=== PATIENT | male | born 2000 | race Caucasian/White ===

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

== ENCOUNTER 2020-10-03 21:30 | Emergency (ER) | payer OTHER ==
[2020-10-03 21:46] VITALS: BP 112/70; PULSE 104
--- NOTE | 2020-10-03 22:09 | EDM.PDOC ---
ED HPI GENERAL MEDICAL PROBLEM - General Chief Complaint: General Stated Complaint: PAIN IN GROIN AREA Time Seen by Provider: 10/03/20 21:41 Source of Information: Reports: Patient History Limitations: Reports: No Limitations - History of Present Illness INITIAL COMMENTS - FREE TEXT/NARRATIVE: Mr. Lozano a pleasant 20-year-old man who now presents the ED with left testicular pain that developed this past 09/29/2020, while he was having sexual intercourse with his girlfriend. He does not recall any specific injury to the teste. Since then, he has noticed that his left teste swollen and tender. Pain to the testes made worse with virtually any movement, and radiates up into his left pelvic area. Pain is made worse if he takes a hot shower, but is relieved if he urinates. He reports increased urinary frequency, but denies dysuria. He has not had a fever. No prior similar symptoms. The patient has not taken any [id number] medications, nor attempted to ice his scrotum since the onset of his symptoms. Here in the ED, the patient is found to be mildly tachycardic at 104 bpm, otherwise, he is hemodynamically stable, afebrile, saturating 99% on room air. Prior to Monday, the patient denies having a recent fever, chills, sore throat, ear pain, nasal or sinus congestion, cough, dyspnea, chest pain, palpitations, nausea, vomiting, constipation, diarrhea, abdominal pain, urinary symptoms, recent weight gain or weight loss, recent bloody bowel movements or black bowel movements, recent joint aches, headaches, or rashes. I reviewed the PMHx/PSHx/SocHx, which was reviewed with the patient by the RN. The patient's PCP is ARAM Amaro. - Related Data Allergies Allergy/AdvReac Type Severity Reaction Status Date / Time No Known Allergies Allergy Verified 03/26/18 14:23 Home Meds: Home Meds . [No Known Home Meds] 10/03/20 [History] Past Medical History - Past Health History Medical/Surgical History: Denies Medical/Surgical History Musculoskeletal History: Reports: Other (See Below) Other Musculoskeletal History: wrist fracture x 2 Endocrine/Metabolic History: Reports: Obesity/BMI 30+ Immunologic History: Reports: None Oncologic (Cancer) History: Reports: None - Past Surgical History Head Surgeries/Procedures: Reports: None Musculoskeletal Surgical History: Reports: Other (See Below) Other Musculoskeletal Surgeries/Procedures:: left wrist ganglion cyst removal Oncologic Surgical History: Reports: None Social & Family History - Family History Family Medical History: No Pertinent Family History - Tobacco Use Tobacco Use Status *Q: Never Tobacco User - Caffeine Use Caffeine Use: Reports: Coffee, Energy Drinks, Soda, Tea - Recreational Drug Use Recreational Drug Type: Reports: Marijuana/Hashish ED ROS GENERAL - Review of Systems Review Of Systems: Comprehensive ROS is negative, except as noted in HPI. ED EXAM, GENERAL - Physical Exam Exam: See Below Exam Limited By: No Limitations General Appearance: Alert, WD/WN, No Apparent Distress Eye Exam: Bilateral Eye: EOMI, Normal Inspection Ears: Normal External Exam, Hearing Grossly Normal Nose: Normal Inspection Throat/Mouth: Normal Inspection, Normal Lips, Normal Voice, No Airway Compromise Head: Atraumatic, Normocephalic Neck: Normal Inspection, Full Range of Motion Respiratory/Chest: No Respiratory Distress, Lungs Clear, Normal Breath Sounds, No Accessory Muscle Use Cardiovascular: Normal Peripheral Pulses, Regular Rate, Rhythm, No Edema, No Gallop, No JVD, No Murmur, No Rub Peripheral Pulses: 3+: Radial (L), Radial (R) GI/Abdominal: Normal Bowel Sounds, Soft, Non-Tender, No Organomegaly, No Distention, No Abnormal Bruit, No Mass (Male) Exam: No Hernia, Circumcised, Cremasteric Reflex, Scrotum Tenderness (R), Testicular Mass (enlarged, very firm, tender left epididymis), Testicular Tenderness (L). No: Testicular Tenderness (R) Back Exam: Normal Inspection, Full Range of Motion, NT Extremities: Normal Inspection, Normal Range of Motion, No Pedal Edema, Normal Capillary Refill Neurological: Alert, Oriented, Normal Cognition, No Motor/Sensory Deficits Psychiatric: Normal Affect Skin Exam: Warm, Dry, Intact, Normal Color, No Rash Course - Vital Signs Last Recorded V/S: Last Vital Signs Temp 37.4 C 10/03/20 21:45 Pulse 104 H 10/03/20 21:45 Resp 20 10/03/20 21:45 BP 112/70 10/03/20 21:45 Pulse Ox 99 10/03/20 21:45 - Orders/Labs/Meds Orders: Active Orders 24 hr Category Date Time Status Scrotum and Contents [US] Stat Exams 10/03/20 22:03 Taken CULTURE URINE [RM] Stat Lab 10/03/20 22:15 Received Labs: Laboratory Tests 10/03/20 10/03/20 10/03/20 Range/Units 22:15 22:21 22:30 WBC 11.35 H (4.23-9.07) K/mm3 RBC 4.52 L (4.63-6.08) M/mm3 Hgb 13.2 L (13.7-17.5) gm/dl Hct 40.6 (40.1-51.0) % MCV 89.8 D (79.0-92.2) fl MCH 29.2 (25.7-32.2) pg MCHC 32.5 (32.2-35.5) g/dl RDW Std Deviation 41.5 (35.1-43.9) fL Plt Count 235 (163-337) K/mm3 MPV 9.1 L (9.4-12.3) fl Neutrophils % (Manual) 62 H (40-60) % Band Neutrophils % 0 (0-10) % Lymphocytes % (Manual) 31 (20-40) % Atypical Lymphs % 0 % Monocytes % (Manual) 5 (2-10) % Eosinophils % (Manual) 1 (0.8-7.0) % Basophils % (Manual) 1 (0.2-1.2) Platelet Estimate Adequate RBC Morph Comment Normal Sodium (136-145) mEq/L Potassium (3.5-5.1) mEq/L Chloride (98-107) mEq/L Carbon Dioxide (21-32) mEq/L Anion Gap (5-15) BUN (7-18) mg/dL Creatinine (0.7-1.3) mg/dL Est Cr Clr Drug Dosing mL/min Estimated GFR (MDRD) (>60) mL/min BUN/Creatinine Ratio (14-18) Glucose (74-106) mg/dL Calcium (8.5-10.1) mg/dL Total Bilirubin (0.2-1.0) mg/dL AST (15-37) U/L ALT (16-63) U/L Alkaline Phosphatase (46-116) U/L C-Reactive Protein (<1.0) mg/dL Total Protein (6.4-8.2) g/dl Albumin (3.4-5.0) g/dl Globulin gm/dL Albumin/Globulin Ratio (1-2) Urine Color Yellow (Yellow) Urine Appearance Slt cloudy H (Clear) Urine pH 7.0 (5.0-8.0) Ur Specific [place] > or = 1.030 (1.005-1.030) Urine Protein 1+ H (Negative) Urine Glucose (UA) Negative (Negative) Urine Ketones Negative (Negative) Urine Occult Blood Negative (Negative) Urine Nitrite Negative (Negative) Urine Bilirubin Negative (Negative) Urine Urobilinogen 2.0 H (0.2-1.0) Ur Leukocyte Esterase Negative (Negative) Urine RBC 0-5 (0-5) /hpf Urine WBC 10-20 H (0-5) /hpf Ur Squamous Epith Cells 0-5 (0-5) /hpf Amorphous Sediment Moderate H (NOT SEEN) /hpf Urine Bacteria Few (FEW) /hpf Urine Mucus Few (FEW) /hpf C trachomatis DNA (PCR) Detected H N gonorrhoeae DNA (PCR) Not detected 10/03/20 Range/Units 22:30 WBC (4.23-9.07) K/mm3 RBC (4.63-6.08) M/mm3 Hgb (13.7-17.5) gm/dl Hct (40.1-51.0) % MCV (79.0-92.2) fl MCH (25.7-32.2) pg MCHC (32.2-35.5) g/dl RDW Std Deviation (35.1-43.9) fL Plt Count (163-337) K/mm3 MPV (9.4-12.3) fl Neutrophils % (Manual) (40-60) % Band Neutrophils % (0-10) % Lymphocytes % (Manual) (20-40) % Atypical Lymphs % % Monocytes % (Manual) (2-10) % Eosinophils % (Manual) (0.8-7.0) % Basophils % (Manual) (0.2-1.2) Platelet Estimate RBC Morph Comment Sodium 142 (136-145) mEq/L Potassium 4.2 (3.5-5.1) mEq/L Chloride 104 (98-107) mEq/L Carbon Dioxide 30 (21-32) mEq/L Anion Gap 12.2 (5-15) BUN 15 (7-18) mg/dL Creatinine 1.3 (0.7-1.3) mg/dL Est Cr Clr Drug Dosing 102.44 mL/min Estimated GFR (MDRD) > 60 (>60) mL/min BUN/Creatinine Ratio 11.5 L (14-18) Glucose 102 (74-106) mg/dL Calcium 8.7 (8.5-10.1) mg/dL Total Bilirubin 0.5 (0.2-1.0) mg/dL AST 18 (15-37) U/L ALT 22 (16-63) U/L Alkaline Phosphatase 54 (46-116) U/L C-Reactive Protein 10.9 H* (<1.0) mg/dL Total Protein 7.7 (6.4-8.2) g/dl Albumin 3.6 (3.4-5.0) g/dl Globulin 4.1 gm/dL Albumin/Globulin Ratio 0.9 L (1-2) Urine Color (Yellow) Urine Appearance (Clear) Urine pH (5.0-8.0) Ur Specific [place] (1.005-1.030) Urine Protein (Negative) Urine Glucose (UA) (Negative) Urine Ketones (Negative) Urine Occult Blood (Negative) Urine Nitrite (Negative) Urine Bilirubin (Negative) Urine Urobilinogen (0.2-1.0) Ur Leukocyte Esterase (Negative) Urine RBC (0-5) /hpf Urine WBC (0-5) /hpf Ur Squamous Epith Cells (0-5) /hpf Amorphous Sediment (NOT SEEN) /hpf Urine Bacteria (FEW) /hpf Urine Mucus (FEW) /hpf C trachomatis DNA (PCR) N gonorrhoeae DNA (PCR) - Re-Assessments/Exams Free Text/Narrative Re-Assessment/Exam: 10/03/20 22:04 As above, the patient developed left testicular pain radiating up into his left pelvis this past 09/29/2020, while having sexual intercourse. He has since had pain, particularly with any movement. Pain is also made following a hot shower. He reports increased urinary frequency, but no dysuria, indeed, he has some relief of pain when he urinates. No recent fever. On examination, the patient has an enlarged, very firm, and tender epididymis extending up the spermatic cord. No clinical evidence of an inguinal hernia. I suspect that the patient is suffering from epididymitis. I have ordered several blood tests, a GC by PCR urine test, along with a urinalysis, and an ultrasound of the scrotum. 10/03/20 22:57 The patient's urinalysis is remarkable for occult blood with 0-5 RBCs, negative leukocyte esterase with 10-20 WBCs, negative nitrates with few bacteria, and 0-5 squamous epithelial cells. Based on the above, I have ordered a urine culture. 10/04/20 00:07 Ultrasound of the scrotum is read by [facility] as: 1. No evidence of acute testicular torsion bilaterally. 2. Acute left epididymitis. 3. Remainder of findings as above. The patient's CBC is remarkable for mild leukocytosis of 11.35, but with 0% bandemia. His Hgb is slightly depressed at 13.2, with a Hct within normal limits at 14.6, and the remainder of his CBC being unremarkable. His CMP is unremarkable. His CRP is elevated at 10.9. His GC by urine PCR is positive for chlamydia, and negative for gonorrhea. 10/04/20 00:17 Test results discussed with the patient. It appears that the patient is suffering from epididymitis due to Chlamydia trachomatis. Current guidelines recommend treatment with doxycycline 100 mg po BID x 10 days, as opposed to azithromycin 1 g x 1. Additionally, while the patient's gonorrhea PCR returned negative, current guidelines recommend treatment with Rocephin 500 mg IM x 1 anyway. The patient is agreeable. I emphasized that his girlfriend will need to be treated for chlamydia as well, and that neither of them can have sex with each other until both of them have finished her treatment, otherwise one will simply give chlamydia back to the other. The patient expressed understanding of that. 10/04/20 00:22 Since it is now Monday, the only pharmacy that will be open will be the [facility], between noon and 4 PM. The patient is concerned that his insurance will not cover prescriptions from there, therefore he is elected to get the doxycycline via [facility]. I have therefore canceled the order for doxycycline, since he will be able to take his own supply here in a few minutes. Departure - Departure Time of Disposition: 00:18 Disposition: Home, Self-Care 01 Condition: Good Clinical Impression: Epididymitis - Discharge Information *PRESCRIPTION DRUG MONITORING PROGRAM REVIEWED*: Not Applicable *COPY OF PRESCRIPTION DRUG MONITORING REPORT IN PATIENT STEVEN: Not Applicable Referrals: PCP,None [Primary Care Provider] - Forms: ED Department Discharge Additional Instructions: You were seen in the ER for a painful and swollen left testicle since Monday. Work-up in the ER included several blood tests, a urinalysis, a gonorrhea and chlamydia urine test, and an ultrasound of your testes. The urine chlamydia test returned positive, and the ultrasound found epididymitis. Your urine was not completely normal, but not entirely consistent with a UTI. A sample of your urine was sent for culture. Based on your history, physical exam, and ER tests, your symptoms are due to epididymitis due to Chlamydia trachomatis. A prescription for the antibiotic doxycycline has been provided to you via [employer]. Take 1 capsule of doxycycline every 12 hours, as prescribed, for 10 days. Finish the entire prescription, even though you will be feeling better before it is finished. In accordance with current guidelines, you were also treated with a single dose of the antibiotic ceftriaxone (Rocephin) in the ER. This was to treat gonorrhea, even though your gonorrhea test returned negative. This was also in accordance with current guidelines. As discussed, it is very important that your girlfriend be treated for chlamydia. Chlamydia in women is usually asymptomatic, but can cause infertility. As discussed, it is very important that neither of you have sex with each other until both of you have finished your treatment for chlamydia. If any other problems, please do not hesitate to return to the ER. Sepsis Event Note (ED) - Evaluation Sepsis Screening Result: No Definite Risk - Focused Exam Vital Signs: Vital Signs Temp Pulse Resp BP Pulse Ox 10/03/20 21:45 37.4 C 104 H 20 112/70 99 - My Orders Last 24 Hours: My Active Orders 10/03/20 22:03 Scrotum and Contents [US] Stat 10/03/20 22:15 CULTURE URINE [RM] Stat - Assessment/Plan Last 24 Hours: My Active Orders 10/03/20 22:03 Scrotum and Contents [US] Stat 10/03/20 22:15 CULTURE URINE [RM] Stat
[2020-10-03 23:55] LABS: C. TRACHOMATIS BY PCR DETECTED
[2020-10-03 23:57] LABS: N. GONORRHOEAE BY PCR NOT DETECTED
[2020-10-04] MEDS ORDERED: Doxycycline 100 MG Cap PO STA (00:10)
[2020-10-04] MEDS ORDERED: cefTRIAXone 250 MG Vial IM STA (00:10)
--- NOTE | 2020-10-04 07:34 | US ---
Testicular ultrasound: Multiple real-time images of the testicles were obtained. Comparison: No prior testicular exam is available. Findings: Increased blood flow is noted within the left epididymis as compared to the right side. This finding is most likely due to epididymitis. Both testicles show no intratesticular abnormality. Both arterial and venous blood flow are seen within the testicles. Very minimal left-sided hydrocele is noted. Left-sided epididymal cyst appears to be present measuring 1.6 cm. Measurements: Right testicle: 3.8 x 2.1 x 3.1 cm Left testicle: 3.6 x 2.5 x 3.5 cm Impression: 1. Increased blood flow within the left epididymis compatible with epididymitis. 2. Small left-sided epididymal cyst which appears simple. 3. Minimal left-sided hydrocele with no intratesticular abnormality. Diagnostic code #3 I agree with preliminary report from [facility], finalized on 10/04/20, 12:20 AM CDT, code 1
== END 2020-10-04 00:40 | disposition home or self-care (01) ==
LOC: JD.ED 21:30
DX: N45.1 Epididymitis (principal); E66.9 Obesity, unspecified; Z68.25 Body mass index [BMI] 25.0-25.9, adult
CPT/HCPCS: 36415; 76870; 76870-26; 80053; 81001; 85007; 85027; 86140; 87086; 87491; 87591; 93975; 96372; 99283; 99284-25; J0696